=== PATIENT | female | born 1940 | race Caucasian/White ===

== ENCOUNTER 2016-11-30 16:21 | Emergency (ER) | payer OTHER ==
[~2016-11-30] VITALS: Ht 154.9 cm; Wt 77.1 kg
[2016-11-30 17:37] VITALS: BP 199/96
--- NOTE | 2016-11-30 17:50 | NUR ---
DR ORR NOTIFIED OF ELEVATED BP.
--- NOTE | 2016-11-30 17:50 | NUR ---
PT F/U WITH FORECLOSURE HOME INSPECTOR TODAY BUT WAS NOT SEEN---C/O HEADACHE, LETHARGY, NAUSEA----SYSTOLIC B/P >200 TODAY.
--- NOTE | 2016-11-30 19:15 | NUR ---
REPORT WICHO BAPTISTE FOR CONTINUITY OF CARE.PT ASYMPTOMATIC.DR ORR AWARE OF ELEVATED BP.
--- NOTE | 2016-11-30 19:20 | NUR ---
RECEIVED SHIFT REPORT FROM AM SHIFT NURSE ON PT.
--- NOTE | 2016-11-30 19:35 | NUR ---
ASSESSMENT DONE. PT IS [place] SPEAKING, A/O X3. ON ACUTE DISTRESS. PT C.O. OF HEADACHE, HIGH BLOOD PRESSURE, FACIAL REDNESS, AND LOWER LEG. VSS ARE STABLE, ONLY HIGH BP NOTED, ER MD AWARE. PT DENIES CHEST PAIN, N/V, AND SOB. NO ACUTE RESPIRATORY DISTRESS NOTED. PRE REMAINS STABLE. WILL CONTINUE TO MONTIOR PT.
[2016-11-30] MEDS ORDERED: MECLIZINE 25 MG TAB PO ONE (19:50)
[2016-11-30] MEDS ORDERED: cloNIDine 0.1 MG TAB PO ONE (19:50)
--- NOTE | 2016-11-30 19:59 | NUR ---
PT LEFT AT THIS TIME TO CT/RADIOLOGY DEPT. PT STABLE.
[2016-11-30] MEDS ORDERED: hydrALAZINE 20 MG/ML VIAL IM ONE (21:00)
--- NOTE | 2016-11-30 21:02 | NUR ---
ER DR SANCHEZ AWARE OF PT LOW HR AT 45-50'S. NEW ORDER BP MED FOR APRESOLINE OK TO GIVE PER ER MD. PT NOTED STABLE, GREG DISCOMFORT.
[2016-11-30 22:15] VITALS: BP 102/58
== END 2016-11-30 22:15 | disposition home or self-care (01) ==
LOC: MED 16:21
DX: I10 Essential (primary) hypertension (principal); R42 Dizziness and giddiness; R11.0 Nausea; E11.9 Type 2 diabetes mellitus without complications; Z86.73 Personal history of transient ischemic attack (TIA), and cerebral infarction without residual deficits
CPT/HCPCS: 36415; 70450; 71010; 80053; 83880; 84484; 85025; 85610; 85730; 93005; 96372; 99285; J0360; J8597

== ENCOUNTER 2017-05-20 21:47 | Inpatient (IN) | payer OTHER ==
[~2017-05-20] VITALS: Ht 154.9 cm; Wt 84.4 kg
[2017-05-20 21:53] VITALS: BP 230/110
--- NOTE | 2017-05-20 22:03 | NUR ---
AMBULATED TO ER OF1
[2017-05-20] MEDS ORDERED: MELO7.5T11 PO (22:07)
[2017-05-20] MEDS ORDERED: METO25TA PO (22:08)
[2017-05-20] MEDS ORDERED: FISH100053 PO (22:09)
[2017-05-20] MEDS ORDERED: BACL10TA4 PO (22:10)
[2017-05-20] MEDS ORDERED: SIMV20TA1 PO (22:10)
[2017-05-20] MEDS ORDERED: VITD1000 PO (22:11)
[2017-05-20] MEDS ORDERED: POTA10TA10 PO (22:12)
[2017-05-20] MEDS ORDERED: RIVA20TA PO (22:13)
[2017-05-20] MEDS ORDERED: LOSA50TA39 PO (22:14)
[2017-05-20] MEDS ORDERED: TRAM50TA94 PO ×2 (22:15)
--- NOTE | 2017-05-20 22:15 | NUR ---
MOVED TO ER BED 3
[2017-05-20] MEDS ORDERED: HYDR100T79 PO (22:16)
--- NOTE | 2017-05-20 22:20 | NUR ---
PATIENT PRESENTS TO ED WITH C/O HIGH BP AND LAYNE X 3 HRS . PT DENIES N/V/D; SKIN IS PINK/WARM/DRY; AAOX4 WITH EVEN AND STEADY GAIT; LUNGS CLEAR BL; HR EVEN AND REGULAR; PT DENIES ANY FEVER, CP, SOB, OR COUGH AT THIS TIME; PATIENT STATES PAIN OF 0/10 AT THIS TIME; VSS; PATIENT POSITIONED FOR COMFORT; HOB ELEVATED; BEDRAILS UP X2; BED DOWN. ER MD MADE AWARE OF PT STATUS.
--- NOTE | 2017-05-20 22:25 | NUR ---
Patient being evaluated by physician at bedside.
[2017-05-20 22:35] LABS: APPEARANCE,URINE CLEAR (CLEAR); BILIRUBIN,URINE NEGATIVE (NEGATIVE); BLOOD, URINE 1+ (NEGATIVE); COLOR,URINE YELLOW (YELLOW); LEUKOCYTE ESTERASE ,URINE NEGATIVE (NEGATIVE); NITRITE, URINE NEGATIVE (NEGATIVE); PH,URINE 7.5 (5.0-9.0); PROTEIN,URINE NEGATIVE (NEGATIVE); UGLUCOSE NEGATIVE (NEGATIVE); UROBILINOGEN,URINE 0.2 EU/dL (0.2 - 1)
[2017-05-20 22:49] LABS: BACTERIA,URINE RARE /HPF (None Seen); SQUAMOUS EPITHELIAL CELL,UR 0-3 /LPF (0-3 (FEW)); WBC,URINE 0-3 /HPF (0-5)
[2017-05-20 22:56] LABS: BASOPHILS # (AUTO) 0.2 K/uL (0.00-0.22); BASOPHILS % (AUTO) 1.8 % (0.0-2.0); EOSINOPHILS # (AUTO) 0.2 K/uL (0-0.4); EOSINOPHILS % (AUTO) 1.9 % (0.0-4.0); HEMATOCRIT 37.2 % (36-48); HEMOGLOBIN 12.5 g/dL (12.0-16.0); LYMPHOCYTES # (AUTO) 1.5 K/uL (2.5-16.5); LYMPHOCYTES % (AUTO) 17.5 % (20.5-51.1); MEAN CORPUSCULAR HEMOGLOBIN 31 pg (27-31); MEAN CORPUSCULAR HGB CONC 34 g/dL (33-37); MEAN CORPUSCULAR VOLUME 91 fL (80-94); MONOCYTES # (AUTO) 0.5 K/uL (0.8-1.0); MONOCYTES % (AUTO) 5.6 % (1.7-9.3); NEUTROPHILS # (AUTO) 6.2 K/uL (1.8-7.7); NEUTROPHILS % (AUTO) 73.2 % (42.2-75.2); PLATELET COUNT (AUTO) 214 K/uL (140-450); RED CELL DISTRIBUTION WIDTH 13.4 % (11.6-13.7); WHITE BLOOD COUNT (AUTO) 8.6 K/uL (4.8-10.8)
[2017-05-20 23:10] LABS: ANION GAP 12.4 (8-16); CALCIUM 8.4 mg/dL (8.5-10.1); CARBON DIOXIDE 25.4 mmol/L (21-32); CHLORIDE 109 mmol/L (98-107); CREATININE 0.9 mg/dL (0.6-1.3); GLUCOSE 138 mg/dL (74-106); POTASSIUM 3.8 mmol/L (3.5-5.1); SODIUM SERUM 143 mmol/L (136-145); UREA NITROGEN, BLOOD 22 mg/dL (7-18)
[2017-05-20 23:12] LABS: INR 1.3 (0.8-1.2); PROTHROMBIN TIME 13.6 secs (10.8-13.4)
[2017-05-20 23:17] LABS: ALANINE AMINOTRANSFERASE 28 U/L (14-59); ALBUMIN 3.9 g/dL (3.4-5.0); ALKALINE PHOSPHATASE 83 U/L (46-116); ASPARTATE AMINOTRANSFERASE 28 U/L (15-37); CREATINE KINASE, TOTAL 196 U/L (26-192); TOTAL BILIRUBIN 0.7 mg/dL (0.0-1.0); TOTAL PROTEIN, SERUM 7.3 g/dL (6.4-8.2)
[2017-05-20 23:39] LABS: CKMB RELATIVE INDEX 0.9 (0.0-2.5); CREATINE KINASE MB 1.8 ng/mL (0-3.6)
[2017-05-21] MEDS ORDERED: LABETALOL 100 MG/20 ML VIAL IVP ONE (00:15)
[2017-05-21] MEDS ORDERED: LORazepam 2 MG/ML VIAL IVP ONE (00:55)
--- NOTE | 2017-05-21 00:58 | NUR ---
IVP MEDS GIVEN-NADR AT THIS TIME
--- NOTE | 2017-05-21 01:11 | NUR ---
Patient appears to be resting comfortably in bed. Vital Signs within normal limits. Respirations even and unlabored.
[2017-05-21] MEDS ORDERED: HYDROcodone/APAP 10/325 MG 1 TAB TAB PO PRN (02:00)
[2017-05-21] MEDS ORDERED: LORazepam 2 MG/ML VIAL IM/IVP PRN (02:00)
[2017-05-21] MEDS ORDERED: MORPHINE SULFATE 2 MG/ML SYR IVP PRN (02:00)
[2017-05-21] MEDS ORDERED: LABETALOL 100 MG/20 ML VIAL IV PRN ×3 (02:00→14:00)
[2017-05-21] MEDS ORDERED: ACETAMINOPHEN 325 MG TAB PO PRN (02:00)
[2017-05-21] MEDS ORDERED: cloNIDine 0.1 MG TAB PO PRN (02:05)
--- NOTE | 2017-05-21 02:15 | NUR ---
Patient will be admitted to care of DR GASPAR. Admited to TELE. Will go to room 108A. Belongings list completed. Report to SKYLAR YI.
--- NOTE | 2017-05-21 02:35 | NUR ---
RECEIVED REPORT FROM ED RN FOR CONTINUITY OF CARE. 77 Y.O FEMALE BROUGHT TO UNIT WITH DX: ACCELERATED HTN. PATIENT IS ALERT AND ORIENTED X4, CONGOLESE SPEAKING, DISCUSSED PLAN OF CARE WITH PATIENT, VERBALIZED UNDERSTANDING. SHIFT ASSESSMENT DONE, VITAL SIGNS TAKEN, ELEVATED BP NOTED WILL ADMINISTER MEDICATIONS PER MD ORDER. NO S/S OF RESPIRATORY DISTRESS NOTED ON ROOM AIR. PATIENT DENIES PAIN. IV PATENT AND FLUSHED. MRSA SWAB COLLECTED AND WRISTBANDS APPLIED. SAFETY PRECAUTIONS ENFORCED AND CALL LIGHT PLACED WITHIN REACH. FAMILY MEMBER AT BEDSIDE. WILL CONTINUE TO MONITOR.
--- NOTE | 2017-05-21 02:58 | NUR ---
BP TAKEN MULTIPLE TIMES, ELEVATED AT 175/63, HR AT 55, PATIENT ASYMPTOMATIC. SPOKE TO DR. RAMIREZ REGARDING DECREASED HR AND PRN BP MEDS. PER MD OK TO GIVE CLONIDINE AND IF THAT DOES NOT WORK GIVE 0900 HYDRALAZINE. ALSO INFORMED MD OF NO DIET ORDER AND PATIENT HX OF DM., WILL FOLLOW OUT ORDERS GIVEN. ADMINISTERED MEDICATION PER MD ORDER, WILL REASSESS B/P.
[2017-05-21 03:00] VITALS: BP 175/63
[2017-05-21] MEDS: METOPROLOL SUCCINATE 50 MG TABER PO SCH ×2 (03:00→09:00)
[2017-05-21] MEDS ORDERED: INSULIN LISPRO SLIDING SCALE 100 UNITS/ML VIAL SUBQ PRN (03:30)
--- NOTE | 2017-05-21 03:30 | NUR ---
PATIENT AMBULATED TO RESTROOM, NO S/S OF DISTRESS OR DISCOMFORT NOTED.RETURNED TO BED AND MADE COMFORTABLE. CALL LIGHT WITHIN REACH.
[2017-05-21 04:00] VITALS: BP 119/64
--- NOTE | 2017-05-21 04:38 | NUR ---
VITAL SIGNS TAKEN, B/P NOW AT 119/64, HR 50-56, PT ASYMPTOMATIC. PATIENT ASLEEP WITH NO S/S OF DISTRESS OR DISCOMFORT NOTED. CALL LIGHT WITHIN REACH, FAMILY MEMBER AT BEDSIDE. WILL CONTINUE TO MONITOR.
[2017-05-21] MEDS: BLOOD GLUCOSE MONITORING 1 DEV DEV FS SCH ×2 (06:05→11:40)
[2017-05-21] MEDS: traMADol 50 MG TAB PO SCH ×2 (06:05→12:53)
--- NOTE | 2017-05-21 06:05 | NUR ---
BLOOD SUGAR TAKEN, 108, NO INSULIN COVERAGE NEEDED. PATIENT REFUSED SCHEDULE TRAMADOL, DENIES PAIN. WILL CONTINUE TO MONITOR.
--- NOTE | 2017-05-21 07:23 | NUR ---
ENDORSED PATIENT TO DAY RN FOR CONTINUITY OF CARE, PATIENT IS IN STABLE CONDITION AT THIS TIME WITH FAMILY MEMBER AT BEDSIDE.
--- NOTE | 2017-05-21 07:25 | NUR ---
RECEIVED REPORT FROM COMPLIANCE TECHNICIAN RN AT BEDSIDE. PT IS SLEEPING COMFORTABLY IN BED. BREATHING EVEN & UNLABORED. NO C/O PAIN NOTED. RIGHT AC #20G IV ACCESS INTACT AND PATENT. DISCUSSED PLAN OF CARE WITH DAUGHTER AT BEDSIDE. BED IN LOW POSITION. SAFETY MEASURES MAINTAINED. CALL LIGHT WITHIN REACH. WILL CONTINUE TO MONITOR. Addendum: 05/21/17 at 1120 by Hernán Rhodes RN PT HAS RIGHT FOREARM 20G IV ACCESS INTACT AND PATENT. PT DOES NOT HAVE RIGHT AC 20G IV ACCESS, CHARTED BY MISTAKE.
[2017-05-21 08:00] VITALS: BP 148/82
[2017-05-21] MEDS ORDERED: RIVAROXABAN 10 MG TAB PO SCH (08:00)
[2017-05-21] MEDS ORDERED: POTASSIUM CHLORIDE 10 MEQ TABER PO SCH (08:30)
[2017-05-21] MEDS ORDERED: LOSARTAN 50 MG TAB PO SCH (08:30)
[2017-05-21] MEDS ORDERED: ENOXAPARIN 40 MG/0.4 ML SYR SUBQ SCH (09:00)
[2017-05-21] MEDS ORDERED: BACLOFEN 10 MG TAB PO SCH (09:00)
--- NOTE | 2017-05-21 09:20 | NUR ---
SCHEDULED PO MEDS GIVEN ORDERED AND TOLERATED WELL BY PT. CALL LIGHT WITHIN REACH. WILL CONTINUE TO MONITOR.
[2017-05-21] MEDS: hydrALAZINE 25 MG TAB PO SCH ×2 (09:22→12:52)
--- NOTE | 2017-05-21 11:16 | NUR ---
PATIENT HAS BEEN SCREENED AND CATEGORIZED MODERATE NUTRITION RISK. PATIENT WILL BE SEEN WITHIN 3-5 DAYS OF ADMISSION. 05/24/17 - 05/26/17 MARIA LUZ ALEGRIA MBA, RD
--- NOTE | 2017-05-21 11:40 | NUR ---
PT'S BLOOD SUGAR:103 mg/dL. NO INSULIN COVERAGE NEEDED.
[2017-05-21 12:00] VITALS: BP 131/68
--- NOTE | 2017-05-21 12:10 | NUR ---
ROUNDED ON PT. V/S STABLE. AFEBRILE. NO ACUTE DISTRESS NOTED. DAUGHTER PRESENTED AT BEDSIDE. WILL CONTINUE TO MONITOR.
--- NOTE | 2017-05-21 15:16 | NUR ---
WRITTEN AND VERBAL DISCHARGE INSTRUCTIONS GIVEN TO PT REGARDING TO DIAGNOSIS, DIET, FOLLOW UP WITH PCP, AND EARLY REPORTING S/SX TO MD, AND EMERGENCY MANAGEMENT.V/S STABLE. NO C/O PAIN. PT VERBALIZED UNDERSTANDING AND SIGNED ALL HER D/C PAPERWORK. SKIN INTACT. REMOVED IV ACCESS AND TIP OF IV INTACT. NO SWELLING NOTED. REMOVED TELEMETRY BOX. OFFERED WHEELCHAIR TO PT, PT REFUSED. PT WAS ACCOMPANIED BY DAUGHTER IN STABLE CONDITION.
[2017-05-21] MEDS ORDERED: SIMVASTATIN 20 MG TAB PO SCH (21:00)
--- NOTE | 2017-05-23 14:39 | NUR ---
CM NOTE RETRO REVIEW FAXED TO [facility] / FAX# [phone], C: [phone]
== END 2017-05-21 15:25 | disposition home or self-care (01) | DRG 305 ==
LOC: MED 21:47 → MTU 05-21 01:41
PROVIDERS: ADMIT Hospitalist; ATTEND Hospitalist
DX: I16.0 Hypertensive urgency (principal); I16.1 Hypertensive emergency; E11.9 Type 2 diabetes mellitus without complications; E78.5 Hyperlipidemia, unspecified; I10 Essential (primary) hypertension; Z86.73 Personal history of transient ischemic attack (TIA), and cerebral infarction without residual deficits; Z79.899 Other long term (current) drug therapy; Z90.49 Acquired absence of other specified parts of digestive tract
CPT/HCPCS: 36415; 70450; 71010; 80053; 81001; 82550; 82553; 82948; 84484; 85025; 85610; 87081; 93005; 96374; 96375; 99285; J2060; J3490; J7030; Q0092

== ENCOUNTER 2017-08-23 18:25 | Emergency (ER) | payer OTHER ==
[~2017-08-23] VITALS: Ht 154.9 cm; Wt 84.9 kg
[~2017-08-23 18:25] MED LIST: BACL10TA4 PO; FISH100053 PO; HYDR100T79 PO; LOSA50TA39 PO; MELO7.5T11 PO; METO25TA PO; POTA10TE30 PO; RIVA20TA PO; SIMV20TA1 PO; TRAM50TA1 PO; VITD1000 PO
[2017-08-23 18:38] VITALS: BP 179/77
[2017-08-23] MEDS ORDERED: FURO-572 PO (18:57)
[2017-08-23] MEDS ORDERED: CLON0.1T42 PO (18:57)
[2017-08-23] MEDS ORDERED: GABA-638 PO (18:57)
[2017-08-23] MEDS ORDERED: CELE200C PO (18:57)
[2017-08-23] MEDS ORDERED: [UNRECOGNIZED DRUG - OTHER] (18:57)
--- NOTE | 2017-08-23 19:00 | NUR ---
PATIENT PRESENTS TO ED WITH RIGHT INGUINAL STABBING TYPE PAIN RDIATING TO RT LEG X 2 MONTHS WORSE TODAY;ADDS MILD DYSURIA;DENIES N/V/D;ALSO C/O PAIN TO RLE VARICOSE VEIN RLE;HX OF HTN, DM, VARICOSE VEINS;RX OF DIOSMINA, CELECOXIB, XARELTO, HYDRALAZINE, LOSARTAN,LASIX, POTASSIUM ER,SIMVASTATIN,VIT D3, CLONIDINE, GABAPENTIN, OMEGA 3. SKIN IS PINK/WARM/DRY; AAOX4 WITH EVEN AND STEADY GAIT; LUNGS CLEAR BL; HR EVEN AND REGULAR; PT DENIES ANY FEVER, CP, SOB, OR COUGH AT THIS TIME; PATIENT STATES PAIN OF 10/10 AT THIS TIME;PATIENT POSITIONED FOR COMFORT; HOB ELEVATED; BEDRAILS UP X2; BED DOWN. ER MD MADE AWARE OF PT STATUS.
--- NOTE | 2017-08-23 19:07 | NUR ---
Dr. Medina evaluating patient at bedside.
--- NOTE | 2017-08-23 19:08 | NUR ---
Pt report given to ELINOR YI. Transfer of care at this time.
--- NOTE | 2017-08-23 19:33 | NUR ---
PT RETURN FROM CT
--- NOTE | 2017-08-23 20:02 | NUR ---
X-Ray at bedside.
[2017-08-23] MEDS ORDERED: MAGNESIUM CITRATE 300 ML BTL PO ONE (20:15)
[2017-08-23 20:25] LABS: BILIRUBIN,URINE NEGATIVE (NEGATIVE); BLOOD, URINE 1+ (NEGATIVE); LEUKOCYTE ESTERASE ,URINE TRACE (NEGATIVE); NITRITE, URINE NEGATIVE (NEGATIVE); UGLUCOSE NEGATIVE (NEGATIVE)
[2017-08-23 20:33] LABS: APPEARANCE,URINE CLEAR (CLEAR); COLOR,URINE STRAW (YELLOW)
[2017-08-23 20:33] LABS: ANION GAP 11.6 (8-16); CARBON DIOXIDE 29.3 mmol/L (21-32); CHLORIDE 108 mmol/L (98-107); GLUCOSE 123 mg/dL (74-106); POTASSIUM 3.9 mmol/L (3.5-5.1); SODIUM SERUM 145 mmol/L (136-145); UREA NITROGEN, BLOOD 22 mg/dL (7-18)
[2017-08-23 20:34] LABS: BASOPHILS # (AUTO) 0.3 K/uL (0.00-0.22); BASOPHILS % (AUTO) 3.4 % (0.0-2.0); EOSINOPHILS # (AUTO) 0.1 K/uL (0-0.4); EOSINOPHILS % (AUTO) 1.7 % (0.0-4.0); HEMATOCRIT 38.8 % (36-48); HEMOGLOBIN 13.2 g/dL (12.0-16.0); LYMPHOCYTES # (AUTO) 1.9 K/uL (2.5-16.5); LYMPHOCYTES % (AUTO) 24.4 % (20.5-51.1); MEAN CORPUSCULAR HEMOGLOBIN 30 pg (27-31); MEAN CORPUSCULAR HGB CONC 34 g/dL (33-37); MEAN CORPUSCULAR VOLUME 89 fL (80-94); MONOCYTES # (AUTO) 0.7 K/uL (0.8-1.0); MONOCYTES % (AUTO) 9.3 % (1.7-9.3); NEUTROPHILS # (AUTO) 4.9 K/uL (1.8-7.7); NEUTROPHILS % (AUTO) 61.2 % (42.2-75.2); PLATELET COUNT (AUTO) 200 K/uL (140-450); RED BLOOD CELL COUNT(AUTO) 4.38 MIL/uL (4.20-5.40); RED CELL DISTRIBUTION WIDTH 13.2 % (11.6-13.7); WHITE BLOOD COUNT (AUTO) 7.9 K/uL (4.8-10.8)
[2017-08-23 20:38] LABS: ASPARTATE AMINOTRANSFERASE 31 U/L (15-37); LIPASE 161 U/L (73-393); TOTAL BILIRUBIN 0.7 mg/dL (0.0-1.0)
[2017-08-23 20:41] LABS: RBC,URINE 0-5 (RARE) /HPF (0-5); WBC,URINE 0-5 (RARE) /HPF (0-5)
[2017-08-23 20:51] VITALS: BP 165/82
== END 2017-08-23 20:51 | disposition home or self-care (01) ==
LOC: MED 18:25
DX: K59.00 Constipation, unspecified (principal); R04.2 Hemoptysis; E11.9 Type 2 diabetes mellitus without complications; I10 Essential (primary) hypertension; Z98.51 Tubal ligation status; Z79.899 Other long term (current) drug therapy
CPT/HCPCS: 36415; 71010; 74176; 80053; 81001; 83690; 85025; 99285; Q0092

== ENCOUNTER 2017-09-22 13:08 | Emergency (ER) | payer OTHER ==
[~2017-09-22] VITALS: Ht 152.4 cm; Wt 72.6 kg
[~2017-09-22 13:08] MED LIST changes: +CELE200C PO; +CLON0.1T42 PO; +FURO-572 PO; +GABA-638 PO; +[UNRECOGNIZED DRUG - OTHER] PO
--- NOTE | 2017-09-22 13:08 | NUR ---
Patient to bed 07.
--- NOTE | 2017-09-22 13:10 | NUR ---
77/F BIB DAUGHTER C/O ELEVATED B/P AND DIZZINESS& HEADACHE , X1 HOUR. PT STATES SHE TOOK TO SL NITRO PRIOR TO ARRIVAL. HX HTN, DM, HYPERLIPIDEMIA, ANGINA. DENIES N/V/D; SKIN IS PINK/WARM/DRY; AAOX4 WITH EVEN AND STEADY GAIT; LUNGS CLEAR BL; PT DENIES ANY FEVER, CP, SOB, OR COUGH AT THIS TIME; PATIENT STATES PAIN OF 4/10 AT THIS TIME; PATIENT POSITIONED FOR COMFORT; HOB ELEVATED; BEDRAILS UP X2; BED DOWN. ER MADE AWARE OF PT STATUS. Addendum: 09/22/17 at 1553 by MED1 PT STS "I DIDN'T SLEEP ENOUGH LAST NIGHT & THIS AM DRANK COFFEE WITH CREAM".
[2017-09-22 13:16] VITALS: BP 231/105
--- NOTE | 2017-09-22 13:25 | NUR ---
Juvenal stafford in ED - 09/22/17 at 1327 by SONIA XRAY at bedside.
--- NOTE | 2017-09-22 13:27 | NUR ---
X RAY AT BEDSIDE
--- NOTE | 2017-09-22 13:54 | NUR ---
LAB AT BEDSIDE
--- NOTE | 2017-09-22 13:55 | NUR ---
DR. ORR EVALUATING PT AT BEDSIDE.
[2017-09-22] MEDS ORDERED: ENALAPRILAT 2.5 MG/2 ML VIAL IVP ONE (14:00)
[2017-09-22 14:12] LABS: BASOPHILS # (AUTO) 0.6 K/uL (0.00-0.22); EOSINOPHILS # (AUTO) 0.1 K/uL (0-0.4); MEAN CORPUSCULAR HGB CONC 33 g/dL (33-37); MONOCYTES # (AUTO) 0.3 K/uL (0.8-1.0)
[2017-09-22 14:14] LABS: HEMATOCRIT 42.2 % (36-48); LYMPHOCYTES # (AUTO) 1.1 K/uL (2.5-16.5); MEAN CORPUSCULAR HEMOGLOBIN 30 pg (27-31); MEAN CORPUSCULAR VOLUME 91 fL (80-94); NEUTROPHILS # (AUTO) 6.9 K/uL (1.8-7.7); PLATELET COUNT (AUTO) 208 K/uL (140-450); RED BLOOD CELL COUNT(AUTO) 4.64 MIL/uL (4.20-5.40); RED CELL DISTRIBUTION WIDTH 13.1 % (11.6-13.7)
--- NOTE | 2017-09-22 14:25 | NUR ---
Patient taken to CT via turner agustin.
[2017-09-22 14:29] LABS: ANION GAP 14.5 (8-16); CARBON DIOXIDE 27.3 mmol/L (21-32); CHLORIDE 104 mmol/L (98-107); CREATININE 0.7 mg/dL (0.6-1.3); GLUCOSE 107 mg/dL (74-106); POTASSIUM 3.8 mmol/L (3.5-5.1); SODIUM SERUM 142 mmol/L (136-145); UREA NITROGEN, BLOOD 23 mg/dL (7-18)
--- NOTE | 2017-09-22 14:34 | NUR ---
Patient back from CT via gurney.
[2017-09-22 14:36] LABS: ALBUMIN 4.4 g/dL (3.4-5.0); ASPARTATE AMINOTRANSFERASE 30 U/L (15-37)
--- NOTE | 2017-09-22 14:39 | NUR ---
Patient appears to be resting comfortably in bed. BP 154/81,P 64, Respirations even and unlabored.WILL CONTINUE TO MONITOR.
[2017-09-22 14:49] LABS: TOTAL BILIRUBIN 0.9 mg/dL (0.0-1.0)
[2017-09-22 14:53] LABS: PROTHROMBIN TIME 15.5 secs (10.8-13.4)
--- NOTE | 2017-09-22 15:09 | NUR ---
Patient appears to be SLEEPING comfortably in bed. BP 150/76,P 59, Respirations even and unlabored.WILL CONTINUE TO MONITOR.
[2017-09-22 15:42] VITALS: BP 145/75
--- NOTE | 2017-09-22 15:42 | NUR ---
Patient discharged with BP 145/72,DENIES HEADAACHE AT THIS TIME. Written and verbal after care instructions given and explained. Patient alert, oriented and verbalized understanding of instructions. Ambulatory with steady gait. All questions addressed prior to discharge. ID band removed. Patient advised to follow up with PMD. Rx of MOTRIN given. Patient educated on indication of medication including possible reaction and side effects. Opportunity to ask questions provided and answered.
[2017-09-23] MEDS ORDERED: NITR0.4T2 SL (09:00)
[2017-09-23] MEDS ORDERED: [UNRECOGNIZED DRUG - OTHER] PO (09:13)
== END 2017-09-22 15:42 | disposition home or self-care (01) ==
LOC: MED 13:08
DX: I10 Essential (primary) hypertension (principal); R10.31 Right lower quadrant pain; E11.9 Type 2 diabetes mellitus without complications; Z90.89 Acquired absence of other organs
CPT/HCPCS: 36415; 71010; 74176; 80053; 81002; 83690; 83880; 84484; 85025; 85610; 85730; 93005; 96374; 99285; J3490; Q0092

== ENCOUNTER 2017-09-23 08:30 | Inpatient (IN) | payer OTHER ==
[~2017-09-23] VITALS: Ht 154.9 cm; Wt 73.5 kg
[2017-09-23 08:41] VITALS: BP 228/105
--- NOTE | 2017-09-23 08:42 | NUR ---
Patient ambulated to bed 03.
--- NOTE | 2017-09-23 08:49 | NUR ---
Patient being evaluated by Dr. Holder at bedside.
--- NOTE | 2017-09-23 08:50 | NUR ---
77/F bib daughter for evaluation. Pt was seen here yesterday for elevated BP and abd pain, discharged home. Pt states she woke up today with elevated blood pressure, pain to back of neck with mild blurry vision. No facial droop noted. Roadway Technician and pushes strong and equal bilaterally. Pt describes pain as aching, dull, non radiating, 8/10. Pt also reports having sharp pain to RLQ radiating to right lower back and radiating down right leg which pt states she had yesterday. Pt reports numbness and tinlging to BLE. BUE and BLE pulses strong, equal and present +2 bilaterally. Denies N/V/D. Denies fever or chills. AOX4, clear speech, fijian speaking. Pt in a gown, placed on sports reporter, pulse oximetry and blood pressure monitoring. Daughter at bedside.
[2017-09-23] MEDS ORDERED: NITR0.4T2 SL (09:00)
--- NOTE | 2017-09-23 09:07 | NUR ---
X-Ray at bedside.
[2017-09-23] MEDS ORDERED: [UNRECOGNIZED DRUG - OTHER] PO (09:13)
[2017-09-23] MEDS ORDERED: ENALAPRILAT 2.5 MG/2 ML VIAL IVP ONE (09:20)
--- NOTE | 2017-09-23 09:20 | NUR ---
Pt taken to CT via [facility].
[2017-09-23 09:23] LABS: BASOPHILS # (AUTO) 0.2 K/uL (0.00-0.22); BASOPHILS % (AUTO) 3.4 % (0.0-2.0); EOSINOPHILS # (AUTO) 0.1 K/uL (0-0.4); EOSINOPHILS % (AUTO) 0.8 % (0.0-4.0); HEMATOCRIT 39.7 % (36-48); HEMOGLOBIN 13.2 g/dL (12.0-16.0); LYMPHOCYTES # (AUTO) 1.1 K/uL (2.5-16.5); LYMPHOCYTES % (AUTO) 16.5 % (20.5-51.1); MEAN CORPUSCULAR HEMOGLOBIN 30 pg (27-31); MEAN CORPUSCULAR HGB CONC 33 g/dL (33-37); MEAN CORPUSCULAR VOLUME 91 fL (80-94); MONOCYTES # (AUTO) 0.4 K/uL (0.8-1.0); MONOCYTES % (AUTO) 6.7 % (1.7-9.3); NEUTROPHILS # (AUTO) 4.6 K/uL (1.8-7.7); NEUTROPHILS % (AUTO) 72.6 % (42.2-75.2); PLATELET COUNT (AUTO) 221 K/uL (140-450); RED BLOOD CELL COUNT(AUTO) 4.37 MIL/uL (4.20-5.40); RED CELL DISTRIBUTION WIDTH 13.4 % (11.6-13.7); WHITE BLOOD COUNT (AUTO) 6.4 K/uL (4.8-10.8)
--- NOTE | 2017-09-23 09:32 | NUR ---
Patient returned from CT and placed in bed 3.
[2017-09-23 09:42] LABS: PROTHROMBIN TIME 12.6 secs (10.8-13.4)
[2017-09-23 09:43] LABS: ANION GAP 11.8 (8-16); CARBON DIOXIDE 27.8 mmol/L (21-32); CHLORIDE 104 mmol/L (98-107); CREATININE 0.8 mg/dL (0.6-1.3); GLUCOSE 136 mg/dL (74-106); POTASSIUM 3.6 mmol/L (3.5-5.1); SODIUM SERUM 140 mmol/L (136-145); UREA NITROGEN, BLOOD 22 mg/dL (7-18)
[2017-09-23 09:55] LABS: ALBUMIN 3.9 g/dL (3.4-5.0); ASPARTATE AMINOTRANSFERASE 28 U/L (15-37); TOTAL BILIRUBIN 1.2 mg/dL (0.0-1.0)
[2017-09-23] MEDS ORDERED: ACETAMINOPHEN 325 MG TAB PO ONE (10:00)
--- NOTE | 2017-09-23 10:06 | NUR ---
Patient resting comfortably in bed. VSS. Comfort needs met.
[2017-09-23 10:14] LABS: CREATINE KINASE MB 2.1 ng/mL (0-3.6)
[2017-09-23] MEDS ORDERED: MORPHINE SULFATE 2 MG/ML SYR IVP PRN (10:35)
[2017-09-23] MEDS ORDERED: ONDANSETRON 4 MG/2 ML VIAL IVP PRN (10:35)
--- NOTE | 2017-09-23 10:40 | NUR ---
Patient will be admitted to care of Dr. Phillips. Admited to TELE. Will go to room 110-B. Belongings list completed. Report to Blanca YI.
--- NOTE | 2017-09-23 10:45 | NUR ---
Pt transferred to Tele 110-B via [facility] on groundwater monitoring technician in stable condition accompanied by EMT Amadeo, patient's daughter and myself.
--- NOTE | 2017-09-23 10:50 | NUR ---
PT ARRIVED ON UNIT IN A GURNEY, WITH RN PRESENT AT SIDE. PT IS AAOX4. PT SHOWS NO S/S OF ACUTE DISTRESS RA. ON TELE MONITOR. PT HAS NOTED IV NOTED ON THE LT WRIST SL PATENT AND INTACT. NOTED VARICOSE VEINS BLE OTHERWISE, SKIN IS INTACT. FALL RISK PROTOCOL AND SAFETY PRECAUTIONS ARE IN PLACE. PT AND DAUGHTER BENJAMIN GAY WAS EXPLAINED POC FOR TODAY AND VERBALIZED UNDERSTANDING. THE BED IS IN LOW POSITION WITH CALL LIGHT WITHIN REACH. WILL CONTINUE TO MONITOR.
[2017-09-23 11:37] VITALS: BP 143/67
--- NOTE | 2017-09-23 12:00 | NUR ---
DR KELLY WAS PAGED REGARDING HR OF 44 AND BP OF 166/78. PT C/O RT LEG PAIN AND WILL RECOMMEND FOR DR TO CONTINUE PT'S TRAMADOL 50 MG TAB FOR MODERATE PAIN WILL AWAIT CALL BACK.
--- NOTE | 2017-09-23 12:15 | NUR ---
DR KELLY AWARE OF HR OF 44, BP OF 166/78, AND IF PT CAN CONTINUE TRAMADOL FOR MODERATE PAIN. IS TO PLACE ORDERS.
[2017-09-23] MEDS ORDERED: NITROGLYCERIN 0.4 MG TAB SL PRN (12:25)
[2017-09-23] MEDS ORDERED: NON-FORMULARY ITEM (Hydralazine HCl (Hydralazine Hydrochloride) 50 MG) PO SCH (12:25)
--- NOTE | 2017-09-23 12:40 | NUR ---
DR JONES WAS NOTIFIED OF PT BEING ON THE UNIT JOSE LUIS ARCOS NOTIFIED AND PLACED ORDERS FOR PT.
--- NOTE | 2017-09-23 12:50 | NUR ---
PT IS IN BED RESTING WITH DAUGHTER PRESENT AT BEDSIDE. BED IN LOW POSITION WITH CALL LIGHT WITHIN REACH.
[2017-09-23] MEDS ORDERED: NIFEdipine 30 MG TABER PO SCH (12:55)
[2017-09-23] MEDS: hydrALAZINE 25 MG TAB PO SCH ×2 (13:45→17:59)
--- NOTE | 2017-09-23 13:50 | NUR ---
ADMINISTERED SCHEDULED MEDICATIONS. PT DENIES PAIN AT RT LEG PAIN RIGHT NOW. PT SWALLOWED MEDICATIONS WITH NO DIFFICULTY. PT FAMILY AT BEDSIDE. BED IN LOW POSITION WITH CALL LIGHT WITHIN REACH.
--- NOTE | 2017-09-23 14:45 | NUR ---
PT BEING SEEN BY PARTS ASSEMBLER. PT WAS ASSISTED TO THE RR WITH STEADY GAIT. PT'S NEEDS MET AT THIS TIME. WILL CONTINUE TO MONITOR.
--- NOTE | 2017-09-23 15:05 | NUR ---
PT HR WENT DOWN TO 44. PT IS BEING SEE BY [employer] AND HR ON HIS MONITOR IS 52. PT IS AAOX4 AND DENIES CHEST PAIN, DIZZINESS, AND FATIGUE. NO ACUTE DISTRESS NOTED.
--- NOTE | 2017-09-23 15:35 | NUR ---
PAGED DR KELLY REGARDING PT'S BP OF 189/82 ON THE RT ARM. RECHECKED BP ON THE LEFT ARM IS 181/77. HR IS 57. PT STATED SHE HAS A HEADACHE AND WOULD LIKE TYLENOL OR HER MEDICATION TRAMADOL THAT SHE TAKES AT HOME. WILL WAIT FOR CALL BACK.
[2017-09-23] MEDS ORDERED: ACETAMINOPHEN 325 MG TAB PO PRN (15:55)
[2017-09-23] MEDS ORDERED: traMADol 50 MG TAB PO PRN (15:55)
[2017-09-23 16:00] VITALS: BP 181/77
--- NOTE | 2017-09-23 16:00 | NUR ---
RECEIVED CALL BACK FROM DR LETICIA CHRISTIANSON IS AWARE OF HIGH BP. STATED HE WILL BE IN TO SEE PATIENT AT 1700. DR ORDERED TO CONTINUE TRAMADOL HOME MEDICATION AND ADD TYLENOL 650 MG PO Q6H.
[2017-09-23 16:45] VITALS: BP 152/77
--- NOTE | 2017-09-23 16:59 | NUR ---
PT BEING SEEN BY DR JONES.
--- NOTE | 2017-09-23 17:10 | NUR ---
PT REPORT WAS GIVEN TO NIGHT NURSE. PT ENDORSED IN STABLE CONDITION.
[2017-09-23 17:59] VITALS: BP 163/72
[2017-09-23] MEDS ORDERED: hydrALAZINE 20 MG/ML VIAL IVP PRN (18:20)
--- NOTE | 2017-09-23 19:25 | NUR ---
RECEIVED PT AWAKE TALKING TO SON AT BEDSIDE, ALBANIAN SPEAKING ONLY, VITAL SIGNS TAKEN, BP STABLE, DENIES ANY PAIN, PLAN OF CARE DISCUSSED, SAFETY MEASURES IN PLACE, CALL LIGHT WITHIN REACH.
[2017-09-23 20:00] VITALS: BP 135/73
[2017-09-23] MEDS: NIFEdipine 30 MG TABER PO SCH (20:20)
--- NOTE | 2017-09-23 20:20 | NUR ---
DUE MEDICATIONS GIVEN WITH EDUCATION PROVIDED, ALL NEEDS ATTENDED.
[2017-09-23] MEDS ORDERED: cloNIDine 0.1 MG TAB PO SCH (21:00)
[2017-09-23] MEDS ORDERED: SIMVASTATIN 20 MG TAB PO SCH (21:00)
[2017-09-23] MEDS ORDERED: LOSARTAN 50 MG TAB PO SCH (21:00)
--- NOTE | 2017-09-23 22:50 | NUR ---
PT SEEN AMBULATING FROM BR WITH STEADY GAIT, DENIES ANY PAIN, TV TURNED OFF PER PT REQUEST, MONITORED CLOSELY.
[2017-09-24] VITALS: BP 128/71
--- NOTE | 2017-09-24 | NUR ---
PT SLEEPING, EASILY AROUSABLE, VITAL SIGNS STABLE, DENIES ANY PAIN, CONTINUE TO MONITOR CLOSELY.
--- NOTE | 2017-09-24 03:50 | NUR ---
PT AMBULATED TO BR WITH STEADY GAIT, VOIDED FREELY WITH 500ML YELLOW URINE, VITAL SIGNS STABLE, DENIES PAIN OR SOB, MONITORED CLOSELY.
[2017-09-24 04:00] VITALS: BP 141/76
--- NOTE | 2017-09-24 06:00 | NUR ---
PT SLEEPING, EASILY AROUSABLE, NO SIGNS OF PAIN OR SOB, FAMILY MEMBER AT BEDSIDE, MONITORED CLOSELY.
[2017-09-24 07:12] LABS: BASOPHILS # (AUTO) 0.2 K/uL (0.00-0.22); BASOPHILS % (AUTO) 3.8 % (0.0-2.0); EOSINOPHILS # (AUTO) 0.1 K/uL (0-0.4); EOSINOPHILS % (AUTO) 1.6 % (0.0-4.0); HEMATOCRIT 42.3 % (36-48); HEMOGLOBIN 14.1 g/dL (12.0-16.0); LYMPHOCYTES # (AUTO) 1.5 K/uL (2.5-16.5); MEAN CORPUSCULAR HEMOGLOBIN 30 pg (27-31); MEAN CORPUSCULAR HGB CONC 33 g/dL (33-37); MEAN CORPUSCULAR VOLUME 91 fL (80-94); MONOCYTES # (AUTO) 0.6 K/uL (0.8-1.0); MONOCYTES % (AUTO) 9.6 % (1.7-9.3); NEUTROPHILS # (AUTO) 3.9 K/uL (1.8-7.7); PLATELET COUNT (AUTO) 222 K/uL (140-450); RED BLOOD CELL COUNT(AUTO) 4.64 MIL/uL (4.20-5.40); RED CELL DISTRIBUTION WIDTH 13.4 % (11.6-13.7); WHITE BLOOD COUNT (AUTO) 6.3 K/uL (4.8-10.8)
--- NOTE | 2017-09-24 07:18 | NUR ---
PT AWAKE, NO SIGNS OF DISTRESS, REPORT GIVEN TO KASSIDY ZAMORANO FOR CONTINUITY OF CARE.
--- NOTE | 2017-09-24 07:20 | NUR ---
RECEIVED REPORT FROM KASSIDY ARAGON. PATIENT IS AAOX4, RESPIRATORY EFFORT EVEN AND UNLABORED. NO SIGNS AND SYMPTOMS OF DISTRESS NOTED AT THIS TIME. PATIENT HAS IV TO LEFT WRIST 20G, ON HEP LOCK AT THIS TIME. SITE IS CLEAN, DRY, PATENT AND INTACT. DISCUSSED PLAN OF CARE WITH PATIENT , SHE VERBALIZED UNDERSTANDING. BED IN LOWEST POSITION, SIDERAILS UP X2, CALL LIGHT PLACED WITHIN REACH. WILL CONTINUE TO MONITOR.
[2017-09-24 07:23] LABS: ALBUMIN 3.9 g/dL (3.4-5.0); ANION GAP 10.2 (8-16); ASPARTATE AMINOTRANSFERASE 25 U/L (15-37); CARBON DIOXIDE 29.5 mmol/L (21-32); CHLORIDE 105 mmol/L (98-107); CREATININE 0.7 mg/dL (0.6-1.3); GLUCOSE 107 mg/dL (74-106); MAGNESIUM 2.1 mg/dL (1.8-2.4); POTASSIUM 3.7 mmol/L (3.5-5.1); SODIUM SERUM 141 mmol/L (136-145); UREA NITROGEN, BLOOD 20 mg/dL (7-18)
[2017-09-24 08:00] VITALS: BP 144/110
[2017-09-24] MEDS: hydrALAZINE 25 MG TAB PO SCH (08:29)
[2017-09-24] MEDS: NIFEdipine 30 MG TABER PO SCH (08:30)
[2017-09-24] MEDS ORDERED: CHOLECALCIFEROL 1,000 IU TAB PO SCH (09:00)
[2017-09-24] MEDS ORDERED: POTASSIUM CHLORIDE 10 MEQ TABER PO SCH (09:00)
[2017-09-24] MEDS ORDERED: RIVAROXABAN 10 MG TAB PO SCH (09:00)
[2017-09-24] MEDS ORDERED: FUROSEMIDE 20 MG TAB PO SCH (09:00)
[2017-09-24] MEDS ORDERED: ASPIRIN 81 MG TAB.CHEW PO SCH (09:00)
[2017-09-24] MEDS ORDERED: NIFE60TE5 PO (09:27)
--- NOTE | 2017-09-24 11:15 | NUR ---
DISCHARGE ORDERS ARE IN PLACE. INSTRUCTED PATIENT ON WHAT NEW MEDICATION DR KELLY WANTS HER TO START TAKING AND WHICH ONE HE WANTS HER TO STOP. PRESCRIPTION WAS GIVEN TO PATIENT. INSTRUCTIONS TO FOLLOW UP WITH PRIMARY CARE PHYSICIAN WERE GIVEN. INSTRUCTIONS ON WHEN TO SEEK EMERGENCY MEDICAL ATTENTION WERE GIVEN. PATIENT VERBALIZED UNDERSTANDING. PATIENT IS IN STABLE CONDITION, BP WAS 149/85 UPON DISCHARGE. IV SITE HAS BEEN DISCONTINUED. SITE IS CLEAN AND DRY. CATHETER INTACT. ID BANDS REMOVED. PATIENT REFUSED PNA VACCINE. NO SIGNS AND SYMPTOMS OF DISTRESS NOTED AT THIS TIME. WILL WHEEL PATIENT OUT.
--- NOTE | 2017-09-26 07:44 | NUR ---
RETRO ER REPORT H&P AND DISCHARGE SUMMARY FAXED TO [facility] [phone] PHONE NIGEL [phone]
== END 2017-09-24 11:15 | disposition home or self-care (01) | DRG 305 ==
LOC: MED 08:30 → MTU 10:42
PROVIDERS: ADMIT Hospitalist; ATTEND Hospitalist
DX: I16.0 Hypertensive urgency (principal); I48.91 Unspecified atrial fibrillation; E11.9 Type 2 diabetes mellitus without complications; G47.00 Insomnia, unspecified; I10 Essential (primary) hypertension; Z90.49 Acquired absence of other specified parts of digestive tract; Z79.899 Other long term (current) drug therapy; Z79.01 Long term (current) use of anticoagulants
CPT/HCPCS: 36415; 70450; 71010; 80053; 82550; 82553; 82948; 83735; 84484; 85025; 85610; 85730; 87081; 93005; 99285; J3490; Q0092

== ENCOUNTER 2017-12-06 05:00 | Emergency (ER) | payer OTHER ==
[~2017-12-06] VITALS: Ht 160 cm; Wt 81.4 kg
[~2017-12-06 05:00] MED LIST changes: -BACL10TA4 PO; -CELE200C PO; -CLON0.1T42 PO; -GABA-638 PO; -METO25TA PO; +NIFE60TE5 PO; +NITR0.4T2 SL; -[UNRECOGNIZED DRUG - OTHER] PO
[2017-12-06 05:11] VITALS: BP 185/90
--- NOTE | 2017-12-06 05:15 | NUR ---
PATIENT AMBULATED TO ER BED 11
--- NOTE | 2017-12-06 05:20 | NUR ---
77/F CAME IN W C/O HIGH BLOOD PRESSURE. PT STATES " I TOOK MY REGULAR BLOOD PRESSURE MEDS TODAY BUT MY BP WAS IN 200 SO I TOOK ONE NITRO UNDER TONGUE". BP RETAKE 171/76, PT REMAINS ASYMPTOMATIC. DENIES SOB/CP/COUGH, DENIES HEADACHE/NECK PAIN, BLURRY VISION. PMH: HTN, HLD,
--- NOTE | 2017-12-06 05:25 | NUR ---
NICOLASA ASHBY MADE AWARE OF PT'S HIGH BP.
--- NOTE | 2017-12-06 06:46 | NUR ---
Patient appears to be resting comfortably in bed. Vital Signs within normal limits. Respirations even and unlabored.
[2017-12-06 07:09] LABS: BASOPHILS # (AUTO) 0.2 K/uL (0.00-0.22); BASOPHILS % (AUTO) 2.9 % (0.0-2.0); EOSINOPHILS # (AUTO) 0.1 K/uL (0-0.4); HEMATOCRIT 39.7 % (36-48); HEMOGLOBIN 13.4 g/dL (12.0-16.0); LYMPHOCYTES # (AUTO) 1.2 K/uL (2.5-16.5); LYMPHOCYTES % (AUTO) 16.8 % (20.5-51.1); MEAN CORPUSCULAR HEMOGLOBIN 31 pg (27-31); MEAN CORPUSCULAR HGB CONC 34 g/dL (33-37); MEAN CORPUSCULAR VOLUME 92 fL (80-94); MONOCYTES # (AUTO) 0.8 K/uL (0.8-1.0); MONOCYTES % (AUTO) 10.2 % (1.7-9.3); NEUTROPHILS # (AUTO) 5.1 K/uL (1.8-7.7); NEUTROPHILS % (AUTO) 69.1 % (42.2-75.2); PLATELET COUNT (AUTO) 236 K/uL (140-450); RED BLOOD CELL COUNT(AUTO) 4.34 MIL/uL (4.20-5.40); RED CELL DISTRIBUTION WIDTH 13.2 % (11.6-13.7); WHITE BLOOD COUNT (AUTO) 7.4 K/uL (4.8-10.8)
--- NOTE | 2017-12-06 07:17 | NUR ---
RECEIVED REPORT FROM KASSIDY NATION.
--- NOTE | 2017-12-06 07:19 | NUR ---
Pt report given to ELISHA YI. Transfer of care at this time.
--- NOTE | 2017-12-06 07:20 | NUR ---
RECEIVED REPORT FROM KASSIDY NATION.
[2017-12-06 07:21] LABS: ANION GAP 11.8 (8-16); CARBON DIOXIDE 29.3 mmol/L (21-32); CHLORIDE 106 mmol/L (98-107); CREATININE 0.8 mg/dL (0.6-1.3); GLUCOSE 115 mg/dL (74-106); POTASSIUM 4.1 mmol/L (3.5-5.1); PROTHROMBIN TIME 11.9 secs (10.8-13.4); SODIUM SERUM 143 mmol/L (136-145); UREA NITROGEN, BLOOD 19 mg/dL (7-18)
[2017-12-06] MEDS ORDERED: hydrALAZINE 20 MG/ML VIAL IVP ONE (07:25)
[2017-12-06 07:28] LABS: ALBUMIN 3.9 g/dL (3.4-5.0); ASPARTATE AMINOTRANSFERASE 21 U/L (15-37); TOTAL BILIRUBIN 0.8 mg/dL (0.0-1.0)
[2017-12-06] MEDS ORDERED: NACL 0.9% 500 ML IV ONE (07:30)
--- NOTE | 2017-12-06 07:55 | NUR ---
Patient appears to be resting comfortably in bed, DENIES ANY PAIN, BP 188/70, P 63/M, PULSE OX 98%. Respirations even and unlabored.WILL CONTINUE TO MONITOR.
[2017-12-06 08:52] VITALS: BP 154/69
--- NOTE | 2017-12-06 08:52 | NUR ---
Patient discharged with BP 154/69, DENIES LAYNE; AWARE. Written and verbal after care instructions given and explained. Patient verbalized understanding. Ambulatory with steady gait. All questions addressed prior to discharge. Advised to follow up with PMD.
== END 2017-12-06 08:52 | disposition home or self-care (01) ==
LOC: MED 05:00
DX: I10 Essential (primary) hypertension (principal); E11.9 Type 2 diabetes mellitus without complications
CPT/HCPCS: 36415; 71045; 80053; 84484; 85025; 85610; 85730; 96374; 99285; J0360; J7030

== ENCOUNTER 2018-02-14 18:33 | Emergency (ER) | payer OTHER ==
[~2018-02-14] VITALS: Ht 152.4 cm; Wt 84.5 kg
[2018-02-14 18:42] VITALS: BP 149/99
--- NOTE | 2018-02-14 18:47 | NUR ---
PT AMBULATED TO BED 1
--- NOTE | 2018-02-14 19:03 | NUR ---
77Y/F C/O CHEST PAIN 5/10 WITH HIGH BLOOD PRESSURE, NO LAYNE OR DIZZINESS. PATIENT POSITIONED FOR COMFORT; HOB ELEVATED; BEDRAILS UP X1; BED DOWN. ER MD MADE AWARE OF PT STATUS.
--- NOTE | 2018-02-14 19:06 | NUR ---
Dr. Carrasco evaluating patient
--- NOTE | 2018-02-14 19:10 | NUR ---
pt ambulated to restroom w/ walker.
--- NOTE | 2018-02-14 19:21 | NUR ---
x-ray at bedside.
--- NOTE | 2018-02-14 19:46 | NUR ---
LAB AT BEDSIDE.
[2018-02-14 20:15] LABS: ANION GAP 12.8 (8-16); CARBON DIOXIDE 26.1 mmol/L (21-32); CHLORIDE 107 mmol/L (98-107); CREATININE 0.9 mg/dL (0.6-1.3); GLUCOSE 139 mg/dL (74-106); POTASSIUM 3.9 mmol/L (3.5-5.1); SODIUM SERUM 142 mmol/L (136-145); UREA NITROGEN, BLOOD 24 mg/dL (7-18)
[2018-02-14 20:17] LABS: BASOPHILS % (AUTO) 0.5 % (0.0-2.0); EOSINOPHILS # (AUTO) 0.1 K/uL (0-0.4); EOSINOPHILS % (AUTO) 1.1 % (0.0-4.0); HEMATOCRIT 39.5 % (36-48); HEMOGLOBIN 13.2 g/dL (12.0-16.0); LYMPHOCYTES # (AUTO) 1.6 K/uL (2.5-16.5); LYMPHOCYTES % (AUTO) 17.3 % (20.5-51.1); MEAN CORPUSCULAR HEMOGLOBIN 31 pg (27-31); MEAN CORPUSCULAR HGB CONC 33 g/dL (33-37); MONOCYTES # (AUTO) 0.7 K/uL (0.8-1.0); MONOCYTES % (AUTO) 7.6 % (1.7-9.3); NEUTROPHILS # (AUTO) 6.7 K/uL (1.8-7.7); NEUTROPHILS % (AUTO) 73.5 % (42.2-75.2); PLATELET COUNT (AUTO) 229 K/uL (140-450); RED CELL DISTRIBUTION WIDTH 14.2 % (11.6-13.7); WHITE BLOOD COUNT (AUTO) 9.1 K/uL (4.8-10.8)
--- NOTE | 2018-02-14 20:32 | NUR ---
PT LAYING IN BED, VSS.
[2018-02-14 20:50] VITALS: BP 142/69
--- NOTE | 2018-02-14 20:50 | NUR ---
Patient discharged with v/s stable. Written and verbal after care instructions given and explained. Patient verbalized understanding. Ambulatory with steady gait. All questions addressed prior to discharge. Advised to follow up with PMD.
== END 2018-02-14 20:50 | disposition home or self-care (01) ==
LOC: MED 18:33
DX: I10 Essential (primary) hypertension (principal); R10.31 Right lower quadrant pain; R94.31 Abnormal electrocardiogram [ECG] [EKG]; E78.5 Hyperlipidemia, unspecified; E11.9 Type 2 diabetes mellitus without complications; Z79.899 Other long term (current) drug therapy
CPT/HCPCS: 36415; 71045; 80048; 85025; 93005; 99285

== ENCOUNTER 2018-12-18 21:18 | Emergency (ER) | payer OTHER ==
[~2018-12-18] VITALS: Ht 157.5 cm; Wt 86.2 kg
[~2018-12-18 21:18] MED LIST changes: -LOSA50TA39 PO; +LOSA50TA66 PO
[2018-12-18 21:39] VITALS: BP 147/73
--- NOTE | 2018-12-18 21:45 | NUR ---
EKG PERFORMED IN TRIAGE ROOM
--- NOTE | 2018-12-18 21:46 | NUR ---
EKG DONE AT TRIAGE.
--- NOTE | 2018-12-18 21:51 | NUR ---
PT AMBULATED TO BED 7 WITH VSS.
[2018-12-18] MEDS ORDERED: hydrALAZINE 20 MG/ML VIAL IM ONE (22:15)
--- NOTE | 2018-12-18 22:15 | NUR ---
CURRENT BP 214/85 ER MD AWARE.
--- NOTE | 2018-12-18 22:25 | NUR ---
PT TO ED C/O HEADACHE AND HIGH BP. PT DENIES N/V/D. PT REPORTS ONE EPISODE OF ELEVATED BP AND POSTERIOR HEADACHE. NO S/S OF DISTRESS NOTED. PT PLACED INTO BED, PENDING MD TRUJILLO
[2018-12-18 22:55] LABS: BASOPHILS # (AUTO) 0.1 K/uL (0.00-0.22); BASOPHILS % (AUTO) 0.7 % (0.0-2.0); EOSINOPHILS # (AUTO) 0.2 K/uL (0-0.4); EOSINOPHILS % (AUTO) 2.4 % (0.0-4.0); HEMATOCRIT 40.1 % (36-48); HEMOGLOBIN 13.3 g/dL (12.0-16.0); LYMPHOCYTES # (AUTO) 1.8 K/uL (2.5-16.5); LYMPHOCYTES % (AUTO) 24.1 % (20.5-51.1); MEAN CORPUSCULAR HEMOGLOBIN 30 pg (27-31); MEAN CORPUSCULAR HGB CONC 33 g/dL (33-37); MEAN CORPUSCULAR VOLUME 91.9 fL (80-94); MONOCYTES # (AUTO) 0.7 K/uL (0.8-1.0); MONOCYTES % (AUTO) 9.7 % (1.7-9.3); NEUTROPHILS # (AUTO) 4.8 K/uL (1.8-7.7); NEUTROPHILS % (AUTO) 63.1 % (42.2-75.2); PLATELET COUNT (AUTO) 204 K/uL (140-450); RED BLOOD CELL COUNT(AUTO) 4.37 MIL/uL (4.20-5.40); RED CELL DISTRIBUTION WIDTH 13.9 % (11.6-13.7); WHITE BLOOD COUNT (AUTO) 7.6 K/uL (4.8-10.8)
[2018-12-18] MEDS ORDERED: KETOROLAC 60 MG/2 ML VIAL IM ONE (23:05)
[2018-12-18 23:14] LABS: ALBUMIN 4.1 g/dL (3.4-5.0); ANION GAP 11.2 (8-16); ASPARTATE AMINOTRANSFERASE 27 U/L (15-37); CARBON DIOXIDE 28.9 mmol/L (21-32); CHLORIDE 105 mmol/L (98-107); CREATININE 0.8 mg/dL (0.6-1.3); GLUCOSE 128 mg/dL (74-106); POTASSIUM 4.1 mmol/L (3.5-5.1); SODIUM SERUM 141 mmol/L (136-145); TOTAL BILIRUBIN 0.4 mg/dL (0.0-1.0); UREA NITROGEN, BLOOD 20 mg/dL (7-18)
[2018-12-19 00:10] VITALS: BP 155/67
== END 2018-12-19 00:10 | disposition home or self-care (01) ==
LOC: MED 21:18
DX: R51 Headache (principal); I10 Essential (primary) hypertension; E78.5 Hyperlipidemia, unspecified; E11.9 Type 2 diabetes mellitus without complications; Z79.899 Other long term (current) drug therapy
CPT/HCPCS: 36415; 70450; 71045; 80053; 81002; 84484; 85025; 87086; 93005; 96372; 99284; J0360; J1885; Q0092

== ENCOUNTER 2019-05-14 06:39 | Emergency (ER) | payer OTHER ==
[~2019-05-14] VITALS: Ht 160 cm; Wt 84.8 kg
--- NOTE | 2019-05-14 06:45 | NUR ---
PT AMBULATED TO BED #11
[2019-05-14 06:58] VITALS: BP 190/72
[2019-05-14] MEDS ORDERED: ONDANSETRON 4 MG/2 ML VIAL IVP ONE (07:15)
[2019-05-14] MEDS ORDERED: MECLIZINE 25 MG TAB PO ONE (07:15)
[2019-05-14] MEDS ORDERED: NACL 0.9% 500 ML IV ONE (07:20)
[2019-05-14] MEDS ORDERED: APIX2.5 PO (07:33)
[2019-05-14] MEDS ORDERED: SYN.05 PO (07:33)
[2019-05-14] MEDS ORDERED: CLON0.2T15 TD (07:33)
[2019-05-14] MEDS ORDERED: BACL10TA4 PO (07:33)
[2019-05-14] MEDS ORDERED: AMLO5TAB PO (07:33)
[2019-05-14 07:35] LABS: BASOPHILS # (AUTO) 0.1 K/uL (0.00-0.22); BASOPHILS % (AUTO) 0.9 % (0.0-2.0); EOSINOPHILS # (AUTO) 0.1 K/uL (0-0.4); EOSINOPHILS % (AUTO) 1.9 % (0.0-4.0); HEMATOCRIT 41.2 % (36-48); HEMOGLOBIN 13.6 g/dL (12.0-16.0); LYMPHOCYTES # (AUTO) 1.4 K/uL (2.5-16.5); LYMPHOCYTES % (AUTO) 23.3 % (20.5-51.1); MEAN CORPUSCULAR HEMOGLOBIN 31 pg (27-31); MEAN CORPUSCULAR HGB CONC 33 g/dL (33-37); MONOCYTES # (AUTO) 0.4 K/uL (0.8-1.0); MONOCYTES % (AUTO) 7.4 % (1.7-9.3); NEUTROPHILS % (AUTO) 66.5 % (42.2-75.2); PLATELET COUNT (AUTO) 215 K/uL (140-450); RED BLOOD CELL COUNT(AUTO) 4.47 MIL/uL (4.20-5.40); RED CELL DISTRIBUTION WIDTH 14.3 % (11.6-13.7)
--- NOTE | 2019-05-14 07:38 | NUR ---
PT TO RADIOLOGY
--- NOTE | 2019-05-14 07:48 | NUR ---
RETURNED FROM RADIOLOGY VIA [facility]
[2019-05-14 07:58] LABS: ALBUMIN 3.9 g/dL (3.4-5.0); ANION GAP 12.6 (8-16); ASPARTATE AMINOTRANSFERASE 25 U/L (15-37); CARBON DIOXIDE 26.7 mmol/L (21-32); CHLORIDE 105 mmol/L (98-107); CREATININE 0.7 mg/dL (0.6-1.3); GLUCOSE 127 mg/dL (74-106); POTASSIUM 3.3 mmol/L (3.5-5.1); SODIUM SERUM 141 mmol/L (136-145); TOTAL BILIRUBIN 0.9 mg/dL (0.0-1.0); UREA NITROGEN, BLOOD 20 mg/dL (7-18)
[2019-05-14 08:01] LABS: PROTHROMBIN TIME 10.7 secs (10.8-13.4)
--- NOTE | 2019-05-14 08:08 | NUR ---
[facility] NOTIFIED , URINE SAMPLE RECEIVED AND READY FOR COLLECTION
[2019-05-14 08:48] LABS: APPEARANCE,URINE HAZY (CLEAR); BILIRUBIN,URINE NEGATIVE (NEGATIVE); BLOOD, URINE TRACE-L (NEGATIVE); COLOR,URINE YELLOW (YELLOW); LEUKOCYTE ESTERASE ,URINE NEGATIVE (NEGATIVE); NITRITE, URINE NEGATIVE (NEGATIVE); UGLUCOSE NEGATIVE (NEGATIVE)
[2019-05-14 08:58] LABS: RBC,URINE NONE SEEN /HPF (0-5); WBC,URINE NONE SEEN /HPF (0-5)
[2019-05-14] MEDS ORDERED: ACETAMINOPHEN 325 MG TAB PO ONE (09:30)
--- NOTE | 2019-05-14 09:42 | NUR ---
Patient discharged with v/s stable. Written and verbal after care instructions given and explained. Patient alert, oriented and verbalized understanding of instructions. Ambulatory with steady gait. All questions addressed prior to discharge. ID band removed. Patient advised to follow up with PMD. Rx of ZOFRAN/ MECLIZINE given. Patient educated on indication of medication including possible reaction and side effects. Opportunity to ask questions provided and answered.
--- NOTE | 2019-05-14 09:44 | NUR ---
PT STATED, FAMILY WILL RETURN SHORTLY TO PICK HER UP
--- NOTE | 2019-05-14 10:15 | NUR ---
FAMILY NOTIFIED OF DC--ON THEIR WAY
[2019-05-14 10:33] VITALS: BP 160/63
--- NOTE | 2019-05-14 10:34 | NUR ---
PT UP TO RESTROOM AGAIN--AMBULATORY WITH STEADY GAIT---ADMITS HEADACHE HAS SUBSIDED; FULL CLEAR SPEECH--DENIES DIZZINESS PT TO WAIT IN ER LOBBY FOR FAMILY
== END 2019-05-14 09:42 | disposition home or self-care (01) ==
LOC: MED 06:39
DX: R42 Dizziness and giddiness (principal); I10 Essential (primary) hypertension; E78.5 Hyperlipidemia, unspecified; E11.9 Type 2 diabetes mellitus without complications; E07.9 Disorder of thyroid, unspecified; Z86.73 Personal history of transient ischemic attack (TIA), and cerebral infarction without residual deficits; Z79.899 Other long term (current) drug therapy
CPT/HCPCS: 36415; 70450; 71045; 80053; 81001; 84484; 85025; 85610; 85730; 93005; 96374; 99284; J2405; J7030; J8597; Q0092

== ENCOUNTER 2021-05-04 21:06 | Emergency (ER) | payer OTHER ==
[~2021-05-04] VITALS: Ht 182.9 cm; Wt 81.6 kg
[~2021-05-04 21:06] MED LIST changes: +AMLO5TAB PO; +APIX2.5 PO; +BACL10TA4 PO; +CLON0.2T15 TD; -RIVA20TA PO; +SYN.05 PO
[2021-05-04 21:17] VITALS: BP 195/95
--- NOTE | 2021-05-04 21:17 | NUR ---
TO BED VIA W/C
--- NOTE | 2021-05-04 21:20 | NUR ---
TO ER BED 2
--- NOTE | 2021-05-04 21:25 | NUR ---
PT. IS A 80 Y/O FEMALE THAT CAME INTO ED WITH C/O OF HIGH BLOOD PRESSURE. PT. SON STATES THE BP READING WAS 251/71 PRIOR 1 HR TO ARRIVAL. PT. STATES SHE HAS A HEADACHE AND RATES IT AT 8/10 ON THE PAIN SCALE AT THIS TIME. DENIES DIZZINESS, FEVER/N/V/D. DENIES N/V/D; SKIN IS PINK/WARM/DRY; AAOX4; HR EVEN AND REGULAR; PT DENIES ANY FEVER, CP, SOB, OR COUGH AT THIS TIME; VSS; PATIENT POSITIONED FOR COMFORT; HOB ELEVATED; BEDRAILS UP X2; BED DOWN. ER MD MADE AWARE OF PT STATUS. PMH: HTN ALLERGIES: NKA
--- NOTE | 2021-05-04 21:40 | NUR ---
EKG AT BEDSIDE
--- NOTE | 2021-05-04 21:48 | NUR ---
LAB AT BEDSIDE
[2021-05-04 21:59] LABS: BASOPHILS # (AUTO) 0.1 K/uL (0.00-0.22); BASOPHILS % (AUTO) 0.6 % (0.0-2.0); EOSINOPHILS # (AUTO) 0.1 K/uL (0-0.4); EOSINOPHILS % (AUTO) 0.8 % (0.0-4.0); HEMOGLOBIN 13.3 g/dL (12.0-16.0); LYMPHOCYTES # (AUTO) 1.8 K/uL (2.5-16.5); LYMPHOCYTES % (AUTO) 13.5 % (20.5-51.1); MEAN CORPUSCULAR HEMOGLOBIN 31 pg (27-31); MEAN CORPUSCULAR HGB CONC 32 g/dL (33-37); MONOCYTES # (AUTO) 0.9 K/uL (0.8-1.0); MONOCYTES % (AUTO) 6.5 % (1.7-9.3); NEUTROPHILS # (AUTO) 10.6 K/uL (1.8-7.7); NEUTROPHILS % (AUTO) 78.6 % (42.2-75.2); PLATELET COUNT (AUTO) 222 K/uL (140-450); RED BLOOD CELL COUNT(AUTO) 4.37 MIL/uL (4.20-5.40); RED CELL DISTRIBUTION WIDTH 14.4 % (11.6-13.7); WHITE BLOOD COUNT (AUTO) 13.5 K/uL (4.8-10.8)
[2021-05-04 22:19] LABS: ALBUMIN 4.4 g/dL (3.4-5.0); ANION GAP 13.2 (8-16); ASPARTATE AMINOTRANSFERASE 83 U/L (15-37); CARBON DIOXIDE 25.4 mmol/L (21-32); CHLORIDE 106 mmol/L (98-107); CREATININE 0.8 mg/dL (0.6-1.3); GLUCOSE 139 mg/dL (74-106); POTASSIUM 3.6 mmol/L (3.5-5.1); SODIUM SERUM 141 mmol/L (136-145); TOTAL BILIRUBIN 0.9 mg/dL (0.0-1.0); UREA NITROGEN, BLOOD 22 mg/dL (7-18)
--- NOTE | 2021-05-04 22:20 | NUR ---
ERMD FLAMMIA AT BEDSIDE.
[2021-05-04] MEDS ORDERED: amLODIPine 5 MG TAB PO ONE (22:40)
[2021-05-04] MEDS ORDERED: ACETAMINOPHEN EXTRA STRENGTH 500 MG TAB PO ONE (22:40)
[2021-05-05 00:05] VITALS: BP 195/95
--- NOTE | 2021-05-05 00:05 | NUR ---
Patient discharged with v/s stable. Written and verbal after care instructions given and explained. Patient alert, oriented and verbalized understanding of instructions. Ambulatory with steady gait. All questions addressed prior to discharge. ID band removed. Patient advised to follow up with PMD.
[2021-05-05 00:15] LABS: APPEARANCE,URINE CLEAR (CLEAR); BILIRUBIN,URINE NEGATIVE (NEGATIVE); BLOOD, URINE 1+ (NEGATIVE); COLOR,URINE YELLOW (YELLOW); LEUKOCYTE ESTERASE ,URINE NEGATIVE (NEGATIVE); NITRITE, URINE NEGATIVE (NEGATIVE); UGLUCOSE NEGATIVE (NEGATIVE)
[2021-05-05 02:28] LABS: RBC,URINE 0-5 /HPF (0-5); WBC,URINE 0-5 /HPF (0-5)
== END 2021-05-05 00:05 | disposition home or self-care (01) ==
LOC: MED 21:06
DX: I10 Essential (primary) hypertension (principal); R51.9 Headache, unspecified; E11.9 Type 2 diabetes mellitus without complications; E07.9 Disorder of thyroid, unspecified; E78.5 Hyperlipidemia, unspecified; Z79.899 Other long term (current) drug therapy; Z86.73 Personal history of transient ischemic attack (TIA), and cerebral infarction without residual deficits
CPT/HCPCS: 36415; 80053; 81001; 83880; 84484; 85025; 87086; 93005; 99283

== ENCOUNTER 2021-10-22 13:41 | Emergency (ER) | payer OTHER ==
[~2021-10-22] VITALS: Ht 154.9 cm; Wt 86.2 kg
[~2021-10-22 13:41] MED LIST changes: +POTA10TA70 PO; -POTA10TE30 PO
[2021-10-22 14:20] VITALS: BP 142/89
[2021-10-22] MEDS ORDERED: ACETAMINOPHEN EXTRA STRENGTH 500 MG TAB PO ONE (16:25)
[2021-10-22] MEDS ORDERED: ACET-10509 PO (17:26)
[2021-10-22 17:35] VITALS: BP 142/89
--- NOTE | 2021-10-22 17:35 | NUR ---
Patient discharged with v/s stable. Written and verbal after care instructions given FOR EARACHE AND GEN HEADACHE and explained. Patient alert, oriented and verbalized understanding of instructions. Ambulatory with steady gait. All questions addressed prior to discharge. ID band removed. Patient advised to follow up with PMD. Rx of TYNENOL given. Patient educated on indication of medication including possible reaction and side effects. Opportunity to ask questions provided and answered.
== END 2021-10-22 17:35 | disposition home or self-care (01) ==
LOC: MED 13:41
DX: H92.01 Otalgia, right ear (principal); R51.9 Headache, unspecified; E11.9 Type 2 diabetes mellitus without complications; I10 Essential (primary) hypertension; E07.9 Disorder of thyroid, unspecified; E78.5 Hyperlipidemia, unspecified; Z86.73 Personal history of transient ischemic attack (TIA), and cerebral infarction without residual deficits; Z90.49 Acquired absence of other specified parts of digestive tract; Z79.899 Other long term (current) drug therapy
CPT/HCPCS: 70450; 71045; 93005; 99285